=== PATIENT | male | born 1990 | race Caucasian/White ===

== ENCOUNTER 2018-08-26 10:56 | Emergency (ER) | payer OTHER ==
[~2018-08-26] VITALS: Ht 177.8 cm; Wt 81.6 kg
[2018-08-26 10:56] VITALS: BP 129/72
--- NOTE | 2018-08-26 11:00 | NUR ---
PT BIB SELF FOR CHEST TUBE D/C.
[2018-08-26] MEDS ORDERED: BENZOIN COMPOUND TINCT 60 ML BOTTLE ONE (12:18)
--- NOTE | 2018-08-26 12:26 | NUR ---
RADIO AT BEDSIDE
--- NOTE | 2018-08-26 12:31 | NUR ---
CHEST TUBE D/C. NO PAIN NOTED. NO DRAINAGE FROM SITE. PT DOES NOT REPORT SOB.
== END 2018-08-26 12:34 | disposition home or self-care (01) ==
LOC: ER 11:00
DX: J93.9 Pneumothorax, unspecified (principal); Z98.890 Other specified postprocedural states; Z60.2 Problems related to living alone
CPT/HCPCS: 71045-TC; A4606; A6402; Z7610

== ENCOUNTER 2019-01-21 10:19 | Emergency (ER) | payer OTHER ==
[~2019-01-21] VITALS: Ht 175.3 cm; Wt 82.6 kg
--- NOTE | 2019-01-21 11:30 | NUR ---
Pt updated by ER provider Denies any pain/SOB at this time states "I feel fine now" On 100% [id number] as ordered. Lunch served ate 80%
--- NOTE | 2019-01-21 13:35 | NUR ---
Denies ay pain at this time Updated with plan of care
--- NOTE | 2019-01-21 15:27 | NUR ---
Reclining in bed NO obvious distress. Status quo
[2019-01-21 17:33] VITALS: BP 104/62
--- NOTE | 2019-01-21 17:36 | NUR ---
Re-evaluated and updated by MD for discharge. Aftercare Instructions given-verbalized understanding. Home ambulatory in Stable condition Denies any SOB/CP
== END 2019-01-21 17:35 | disposition home or self-care (01) ==
LOC: ER 10:23
DX: J93.9 Pneumothorax, unspecified (principal); Z98.890 Other specified postprocedural states; Z60.2 Problems related to living alone
CPT/HCPCS: 71045-TC